=== PATIENT | female | born 1960 | race Caucasian/White ===

== ENCOUNTER → 2021-08-17 | Day surgery (SDC) | payer OTHER | END | disposition home or self-care (01) | LOC: FMAMMOTONE 11:56 | PROVIDERS: ATTEND Nurse Practitioner Family | PROC: 0HBT3ZX Excision of Right Breast, Percutaneous Approach, Diagnostic (ICD-10-PCS; principal; 2021-08-17) | DX: N60.11 Diffuse cystic mastopathy of right breast (principal); N60.21 Fibroadenosis of right breast; N60.31 Fibrosclerosis of right breast; N60.81 Other benign mammary dysplasias of right breast; N64.89 Other specified disorders of breast; R92.0 Mammographic microcalcification found on diagnostic imaging of breast | CPT/HCPCS: 19081; 76098-TC-FY; 87899; 88305-TC; A4648 ==